=== PATIENT | female | born 1990 | race African-American/Black ===

== ENCOUNTER 2017-11-21 11:55 | Emergency (ER) | payer OTHER ==
[~2017-11-21] VITALS: Ht 152.4 cm; Wt 72.6 kg
[~2017-11-21 11:55] MED LIST: APAP500; IBUPROFEN 600600 M1 PO; NORCO 5-325 TA1 EACH PO; NORFLEX100 MG PO
[2017-11-21 13:21] LABS: URINE BLOOD NEGATIVE (Negative); URINE CLARITY CLEAR; URINE COLOR YELLOW; URINE GLUCOSE-RANDOM* TRACE (Negative); URINE KETONES NEGATIVE (Negative); URINE LEUKOCYTES NEGATIVE (Negative); URINE NITRITE NEGATIVE (Negative); URINE PROTEIN (DIPSTICK) TRACE (Negative); URINE SPECIFIC GRAVITY >= 1.030 (1.005-1.035); URINE UROBILINOGEN >= 8.0 E.U./dl (0.2-1.0)
[2017-11-21 13:26] LABS: ICTOTEST (BILI CONFIRMATORY) Negative (Negative); URINE BILIRUBIN NEGATIVE (Negative)
[2017-11-21] MEDS ORDERED: ZOFRAN ODT4 MG PO (14:50)
[2017-11-21] MEDS ORDERED: PHENERGAN 25 MG25 M1 PO (14:50)
== END 2017-11-21 15:00 | disposition home or self-care (01) ==
LOC: ER 11:55
PROVIDERS: Physician Assistant
DX: R10.9 Unspecified abdominal pain (principal); R11.2 Nausea with vomiting, unspecified

== ENCOUNTER 2018-02-21 07:45 | Emergency (ER) | payer OTHER ==
[~2018-02-21] VITALS: Ht 152.4 cm; Wt 72.6 kg
[~2018-02-21 07:45] MED LIST changes: +PHENERGAN 25 MG25 M1 PO; +ZOFRAN ODT4 MG PO
[2018-02-21 08:17] LABS: HEMATOCRIT 41.6 % (37.0-47.0); HEMOGLOBIN 13.7 gm/dL (12.0-15.0); MCH 31.5 pg (26.0-34.0); MCHC 33.1 g/dL (28.0-37.0); MCV 95.3 fL (80.0-100.0); RBC 4.36 mil/uL (4.20-5.00); WBC 7.7 thou/uL (4.0-11.0)
[2018-02-21 08:40] LABS: CALCIUM 9.8 mg/dL (8.5-10.1); CREATININE 0.8 mg/dL (0.6-1.0); POTASSIUM 3.9 mmol/L (3.5-5.1)
[2018-02-21 09:57] VITALS: BP 123/72
[2018-02-24 14:10] LABS: NEISSERIA GONORRHEA-PCR Negative (Negative)
== END 2018-02-21 09:58 | disposition home or self-care (01) ==
LOC: ER 07:45
PROVIDERS: Emergency Medicine
DX: N94.6 Dysmenorrhea, unspecified (principal)